=== PATIENT | male | born 2000 | race Caucasian/White ===

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

== ENCOUNTER 2021-07-31 15:41 | Emergency (ER) | payer BC, OTHER | END 2021-07-31 16:30 | disposition home or self-care (01) | LOC: JP.ED 15:41 | DX: Z77.098 Contact with and (suspected) exposure to other hazardous, chiefly nonmedicinal, chemicals (principal); Z72.0 Tobacco use | CPT/HCPCS: 99282; 99283 ==